=== PATIENT | female | born 1990 ===

== ENCOUNTER 2018-11-10 07:26 | Inpatient (IN) | payer BC ==
[2018-11-01 13:00] VITALS: BMI 32.1
[2018-11-10] MEDS ORDERED: ceFOXitin IV 1 gm/100 ml in NS 2 GM/200 ML BAG ONE (08:25)
[2018-11-10] MEDS ORDERED: Vasopressin 20 Units/ml Inj ONE (08:25)
[2018-11-10] MEDS ORDERED: Methylene Blue 10 mg/mL(10ml) IV ONE (08:25)
[2018-11-10] MEDS ORDERED: Propofol 10 mg/ml Inj (20 ML) ONE (09:04)
[2018-11-10] MEDS ORDERED: Midazolam 2 MG/2 ML VIAL ONE (09:04)
[2018-11-10] MEDS ORDERED: Atropine Sulfate 0.4 mg/ml (0.8mg/2ml) Syringe IV ONE ×2 (10:37→10:53)
[2018-11-10] MEDS ORDERED: Neostigmine 1:1000 (1 mg/ml) Inj ONE (10:37)
[2018-11-10] MEDS ORDERED: Bacitracin Ointment 30 GM TUBE ONE (10:54)
[2018-11-10] MEDS ORDERED: Ropivacaine 0.5% PF (20 ml) inj INJ ONE (10:59)
[2018-11-10] MEDS ORDERED: Bupivacaine 0.25% 20 ML INJ IJ ONE (10:59)
[2018-11-10] MEDS ORDERED: Lactated Ringer's 1,000 ML IV SCH ×2 (11:15→12:49)
--- NOTE | 2018-11-10 11:25 | PCM.SURG1 ---
Surgeon's Initial Post Op Note - Surgeon's Notes Surgeon: Dr. Rodas [employer]: Dr. Aviles Type of Anesthesia: General Endo Anesthesia Administered By: Dr. Casanova Pre-Operative Diagnosis: 28 yo with Chronic pelvic pain , menorrhagia , irregular menstrual cycle and Fibroid uterus Operative Findings: AV uterus with large fibroid 8 cm Post-Operative Diagnosis: Same as above Operation Performed: Exp Laparotomy , Myomectomy Specimen/Specimens Removed: Fibroid Estimated Blood Loss: EBL {In ML}: 100 Blood Products Given: N/A Drains Used: No Drains Post-Op Condition: Good Date of Surgery/Procedure: 11/10/18 Time of Surgery/Procedure: 11:22
[2018-11-10] MEDS: HYDROmorphone 0.5 mg/0.5 ml ISec IVP PRN ×5 (11:30→12:17)
[2018-11-10] MEDS ORDERED: cefOXitin IV 2 gm in Dextrose 2 GM/50 ML BAG IVPB SCH (12:00)
[2018-11-10] MEDS: Oxycodone/Acetaminophen 5/325 mg Tab PO PRN (14:31)
[2018-11-10] MEDS: cefOXitin IV 2 gm in Dextrose 2 GM/50 ML BAG IVPB SCH ×2 (14:38→21:37)
--- NOTE | 2018-11-10 14:49 | PCM.ANESB5 ---
Transverse Abdominis Block - Transverse Abdominis Plane Date of Procedure: 11/10/18 Anesthesiologist: Chano Pre-Procedure Diagnosis: s/p open myomectomy Post-Procedure Diagnosis: same Procedure Performed: Transverse Abdominis Plane Nerve Block Left, Transverse Abdominis Plane Nerve Block Right - Procedure Transverse Abdominis Plane Nerve Block: The procedure was explained to the patient that it is for post-operative pain management and would be performed after surgery. Consent was obtained prior to surgery after a thorough discussion with the patient regarding the benefits and possible complications of transverse abdominis plane block. After the surgery had concluded and before the patient emerged from general anesthesia, time-out was held with the circulating nurse to re-confirm the appropriate block. With the patient in supine position, the ultrasound probe was placed transverse to the abdominal wall at the mid-axillary line above the iliac crest of the appropriate side. The skin, subcutaneous tissue, fat, external oblique muscle, internal oblique muscle, and the transverse abdominis muscle were identified. The general area of the block site was then prepped with chloraprep. At this point, a # 21-gauge Stimuplex 4-inch needle was inserted posterior to and in plane with the ultrasound probe and directed anteriorly. Needle was advanced under direct ultrasound visualization until it reached the plane between the internal oblique and transverse abdominis muscles. After appropriate placement, 2mL of local anesthetic solution was injected. When the transverse abdominis plane was observed expanding in an ellipsoid way, the rest of the solution was slowly injected. A total of 20mL of 0.25% Bupivacaine was used for this block. The needle was then removed and sterile dressing was applied. Similarly, the same procedure was performed on the other side using the same medications. The patient had stable vital signs throughout and had no untoward complications after emergence from general anesthesia in the recovery room.
[2018-11-10] MEDS ORDERED: HYDROmorphone 0.2 mg/ml PCA 6 MG/30 ML SOL IV ONE (16:14)
--- NOTE | 2018-11-10 22:22 | OP ---
PROCEDURE DATE: 11/10/2018 PREOPERATIVE DIAGNOSIS: A 28-year-old female with a large fibroid uterus, anemia, chronic pelvic pain, irregular menstrual periods, and failure of medical therapy POSTOPERATIVE DIAGNOSIS: A 28-year-old female with a large fibroid uterus, anemia, chronic pelvic pain, irregular menstrual periods, and failure of medical therapy PROCEDURE PERFORMED: Laparotomy and myomectomy. TYPE OF ANESTHESIA: General. ANESTHESIA ADMINISTERED BY: Dr. Casanova. ESTIMATED BLOOD LOSS: Less than 100 mL. URINE OUTPUT: 100 mL. Clear urine at the end of the procedure. FLUIDS: A liter during the procedure. SPECIMEN: One large uterine fibroid. DRAIN: Yeung catheter to gravity. COMPLICATIONS: None. FINDINGS: Consent was reviewed with the patient. The patient was informed of the risk factors. The risk factors included infection, bleeding, damage to surrounding organs or tissue, complications from anesthesia and possible . She was also informed that in the event she can develop recurrence of chronic pelvic pain due to adhesions as well as informed that the leiomyoma can re-grow. All questions were answered. She understood all the questions. An informed consent was obtained. Risk factors were explained but not limited to. On bimanual examination, the patient had a large uterus of approximately 15 weeks' gestation. It was freely mobile, anteverted with no adnexal masses. Surgically, the patient had a large fibroid with a large anterior leiomyoma, it was approximately 8 cm. Both ovaries and tubes appear within normal limits. DESCRIPTION OF PROCEDURE: The patient was taken to the operating room where she was prepped and draped in normal sterile fashion in a dorsal supine position. After the anesthesia was found to be adequate, a Pfannenstiel incision was made with the first knife. This was carried to the underlying layers of the fascia with the second knife. The fascia was then excised in the midline and the fascial incision was then extended laterally in both directions with the Zapata scissors. The superior aspect of the fascial incision was then grasped with the Cyndie clamps, tented up and dissected off the underlying layers of the rectus muscles bluntly. It was then dissected in the midline with the Zapata scissors and the inferior aspect of the incision was addressed in a similar fashion. The rectus muscle was then in the midline bluntly. The peritoneum was identified with hemostatic clamps, tented up and entered sharply with the Metzenbaum scissors. The peritoneal incision was extended superiorly and inferiorly with Metzenbaum scissors and extended bluntly. Next, the uterus was grasped, removed from the abdomen. It was noted that she had a very large anterior leiomyoma. It was then injected with vasopressin 20 units mixed with 100 mL of normal saline along the serosal surface and careful to aspirate to avoid any blood vessels. Next, the point tip was used with the cautery to cut a linear incision along the top of the fibroid until the fibroids were then seen. The edges of the myometrium was then grasped with Allis clamps, tented up and hemostasis was used to bluntly dissect around the fibroids, followed by blunt dissection with the finger. The fibroid was then easily and bluntly dissected out. It was then grasped with a towel clamp for traction. Once the blunt dissection of the large fibroid was complete, it was handed off to the scrub nurse. The large fibroid, once it was handed off, that was going to be sent to pathology. So, the uterine incision was then closed first with 0 chromic in an interrupted figure-of eight fashion, three-layers closure. It was noted that we entered the cavity. From this particular point, we are going to recommend a for her future pregnancies. It was closed with three layers. Excellent hemostasis was noted and then with 0 Vicryl in a running baseball stitch. The uterus was seen to be completely hemostatic after the closure. The uterus was then carefully returned to the abdomen and being careful not to disrupt the FloSeal. Seprafilm was also applied. The rectus muscle was then reapproximated with a single interrupted suture and the peritoneum was reapproximated with 2-0 chromic. The fascia was then closed with 0 Vicryl in a running fashion and the adipose part was closed with 2-0 plain and the skin was closed with 4-0 Monocryl. Steri-Strips were applied. After the patient was cleaned, she was then taken to the recovery room in stable condition. Instrument and lap counts were correct prior to leaving the room. She was then taken to recovery in stable condition. Shayy Rodas MD [facility] # [id number]
[2018-11-11] MEDS: cefOXitin IV 2 gm in Dextrose 2 GM/50 ML BAG IVPB SCH (06:25)
[2018-11-11] MEDS: Oxycodone/Acetaminophen 5/325 mg Tab PO PRN (06:58)
[2018-11-11 08:40] LABS: HEMOGLOBIN 9.9 g/dL (11.0-16.0); MEAN CELL VOLUME 79.6 fL (81.0-99.0); MEAN CORPUSCULAR HEMOGLOBIN 25.1 pg (27.0-31.0); MEAN CORPUSCULAR HGB CONC 31.5 g/dL (33.0-37.0); MEAN PLATELET VOLUME 9.4 fL (7.2-11.7); RBC 3.96 Mil/uL (3.80-5.20); RED CELL DISTRIBUTION WIDTH 30.4 % (11.5-14.5); WHITE BLOOD COUNT 18.7 K/uL (4.8-10.8)
--- NOTE | 2018-11-11 09:10 | CP.PCM.PN ---
<Linda Guevara - Last Filed: 11/11/18 09:06> Subjective - Date & Time of Evaluation Date of Evaluation: 11/11/18 Time of Evaluation: 09:06 - Subjective Subjective: OBGYN Progress Note Patient seen and examined per Dr. Rodas's request. Patient currently s/p laparotomy and myomectomy POD1. She was examined and bedside this morning. Patient endorses a lot of pain and was sitting uncomfortably on her chair, despite taking 1 tablet of percocet at 7am. Patient has a regular diet ordered but has not eaten since she does not feel hungry. Patient has been consistently tachycardic with range 99-110 during her time in the hospital however denies any cardiac history. Rhythm strip in chart shows sinus tachycardia. Patient not complaining of chest pain and palpitations. Objective - Vital Signs/Intake and Output Vital Signs (last 24 hours): Temp Pulse Resp BP Pulse Ox 99.3 F 107 H 18 125/80 97 11/11/18 08:13 11/11/18 08:13 11/11/18 08:13 11/11/18 08:13 11/11/18 08:13 Intake and Output: 11/11/18 11/11/18 06:59 18:59 Intake Total 250 Output Total 1300 Balance -1050 - Medications Medications: Current Medications Ascorbic Acid (Vitamin C 500 Mg Tab) 500 mg PO DAILY [facility] Docusate Sodium (Colace) 100 mg PO BID [facility] Last Admin: 11/10/18 18:02 Dose: Not Given Ferrous Sulfate (Feosol) 325 mg PO TID [facility] Last Admin: 11/10/18 18:03 Dose: Not Given Hydromorphone/Sodium Chloride (Dilaudid Apricot Packer) 6 mg IV Q4H PRN; Protocol PRN Reason: Pain, moderate (4-7) Last Admin: 11/10/18 16:24 Dose: 6 mg Lactated Ringer's (Lactated Ringer's) 1,000 mls @ 125 mls/hr IV .Q8H [facility] Last Admin: 11/10/18 21:38 Dose: 125 mls/hr Ibuprofen (Motrin Tab) 600 mg PO TID [facility] Last Admin: 11/11/18 09:05 Dose: 600 mg Oxycodone/Acetaminophen (Percocet 5/325 Mg Tab) 1 tab PO Q6 PRN PRN Reason: Pain, severe (8-10) Stop: 11/13/18 11:33 Last Admin: 11/11/18 06:58 Dose: 1 tab - Labs Labs: 11/11/18 08:20 - Constitutional Appears: In Acute Distress (Patient hesitates to speak and is sitting out of bed in chair uncomfortably) - Head Exam Head Exam: ATRAUMATIC, NORMAL INSPECTION - Neck Exam Neck Exam: Normal Inspection - Respiratory Exam Respiratory Exam: Clear to Ausculation Bilateral, NORMAL BREATHING PATTERN - Cardiovascular Exam Cardiovascular Exam: Tachycardia - GI/Abdominal Exam GI & Abdominal Exam: Soft, Normal Bowel Sounds Additional comments: surgical bandages intact, patient with abdominal binder - Neurological Exam Neurological Exam: Alert, Awake - Psychiatric Exam Psychiatric exam: Agitated - Skin Skin Exam: Dry, Normal Color, Warm Assessment and Plan - Assessment and Plan (Free Text) Assessment: 28 year old female with PMHx of fibroid uterus, irregular menses, and anemia is s/p laparotomy and myomectomy POD1. s/p laparotomy and myomectomy POD1 -with uncontrolled pain this morning -Ibuprofen and percocet ordered as PRN, s/p 1 tab percocet 7am -will give toradol (30 IV and 30 IM) now due to patient's uncontrolled pain -encourage OOB to chair and ambulation -regular diet anemia -continue with iron TID and vitamin C -continue with colace BID for bowel regimen tachycardia -sinus tachycardia per rhythm strip in chart, range 99-110 this hospitalization -might be secondary to pain, dehydration, and/or her history of anemia (Hg at 9.9 today) -can consider 1 bolus of IVF if tachycardia does not resolve with improved pain control -will continue to monitor vital signs case discussed with Dr. Chad Guevara PGY1 <Amelia Bonilla - Last Filed: 11/11/18 15:02> Objective - Vital Signs/Intake and Output Vital Signs (last 24 hours): Temp Pulse Resp BP Pulse Ox 99.3 F 107 H 18 125/80 97 11/11/18 08:13 11/11/18 08:13 11/11/18 08:13 11/11/18 08:13 11/11/18 08:13 Intake and Output: 11/11/18 11/11/18 06:59 18:59 Intake Total 250 Output Total 1300 Balance -1050 - Medications Medications: Current Medications Ascorbic Acid (Vitamin C 500 Mg Tab) 500 mg PO DAILY [facility] Last Admin: 11/11/18 09:11 Dose: 500 mg Docusate Sodium (Colace) 100 mg PO BID [facility] Last Admin: 11/11/18 09:06 Dose: 100 mg Ferrous Sulfate (Feosol) 325 mg PO TID [facility] Last Admin: 11/11/18 14:46 Dose: 325 mg Hydromorphone/Sodium Chloride (Dilaudid Apricot Packer) 6 mg IV Q4H PRN; Protocol PRN Reason: Pain, moderate (4-7) Last Admin: 11/10/18 16:24 Dose: 6 mg Lactated Ringer's (Lactated Ringer's) 1,000 mls @ 125 mls/hr IV .Q8H [facility] Last Admin: 11/10/18 21:38 Dose: 125 mls/hr Ibuprofen (Motrin Tab) 600 mg PO Q6 [facility] Last Admin: 11/11/18 12:29 Dose: Not Given Oxycodone/Acetaminophen (Percocet 5/325 Mg Tab) 2 tab PO Q6H [facility] Stop: 11/14/18 09:31 Last Admin: 11/11/18 14:51 Dose: Not Given - Labs Labs: 11/11/18 08:20 Assessment and Plan - Assessment and Plan (Free Text) Plan: Pt seen and examined with Dr. Guevara and agree with her assessment, findings and POC
[2018-11-11] MEDS ORDERED: Oxycodone/Acetaminophen 5/325 mg Tab PO SCH (09:30)
[2018-11-11] MEDS: Oxycodone/Acetaminophen 5/325 mg Tab PO SCH ×3 (14:50→21:03)
[2018-11-11] MEDS: Simethicone 80 mg Chewtab PO SCH (21:04)
[2018-11-12] MEDS: Oxycodone/Acetaminophen 5/325 mg Tab PO SCH ×2 (03:06→09:46)
[2018-11-12 07:56] VITALS: RESP 18
[2018-11-12] MEDS: Simethicone 80 mg Chewtab PO SCH ×3 (09:45→17:19)
--- NOTE | 2018-11-12 12:38 | CP.PCM.PN ---
Subjective - Date & Time of Evaluation Date of Evaluation: 11/12/18 Time of Evaluation: 12:36 - Subjective Subjective: OBGYN Progress Note Patient seen and examined per Dr. Rodas's request. Patient seen and examined at bedside this morning. Patient states her pain is decreasing. She has been taking scheduled motrin and 2 tabs of percocet. She thinks the percocet is making her dizzy. She has been passing gas and tolerating a regular diet. Patient wants to go home tonight. Objective - Vital Signs/Intake and Output Vital Signs (last 24 hours): Temp Pulse Resp BP Pulse Ox 97.8 F 97 H 18 115/68 97 11/12/18 07:55 11/12/18 07:55 11/12/18 07:55 11/12/18 07:55 11/12/18 07:55 Intake and Output: 11/12/18 11/12/18 06:59 18:59 Intake Total 500 Balance 500 - Medications Medications: Current Medications Ascorbic Acid (Vitamin C 500 Mg Tab) 500 mg PO DAILY [facility] Last Admin: 11/12/18 09:45 Dose: 500 mg Diphenhydramine HCl (Benadryl) 50 mg PO HS [facility] Last Admin: 11/11/18 22:58 Dose: 50 mg Docusate Sodium (Colace) 100 mg PO BID [facility] Last Admin: 11/12/18 09:44 Dose: 100 mg Ferrous Sulfate (Feosol) 325 mg PO TID [facility] Last Admin: 11/12/18 09:45 Dose: 325 mg Hydromorphone/Sodium Chloride (Dilaudid Outsole Cementer Machine) 6 mg IV Q4H PRN; Protocol PRN Reason: Pain, moderate (4-7) Last Admin: 11/10/18 16:24 Dose: 6 mg Lactated Ringer's (Lactated Ringer's) 1,000 mls @ 125 mls/hr IV .Q8H [facility] Last Admin: 11/10/18 21:38 Dose: 125 mls/hr Ibuprofen (Motrin Tab) 600 mg PO Q6 [facility] Last Admin: 11/12/18 12:28 Dose: 600 mg Oxycodone/Acetaminophen (Percocet 5/325 Mg Tab) 2 tab PO Q6H [facility] Stop: 11/14/18 09:31 Last Admin: 11/12/18 09:46 Dose: 2 tab Simethicone (Mylicon Chew Tab) 80 mg PO QID [facility] Last Admin: 11/12/18 09:45 Dose: 80 mg - Labs Labs: 11/11/18 08:20 - Constitutional Appears: Well (More relaxed appearing compared to yesterday, able to converse in bed comfortably), Non-toxic - Head Exam Head Exam: ATRAUMATIC, NORMAL INSPECTION - Neck Exam Neck Exam: Normal Inspection - Respiratory Exam Respiratory Exam: Clear to Ausculation Bilateral, NORMAL BREATHING PATTERN - Cardiovascular Exam Cardiovascular Exam: REGULAR RHYTHM - GI/Abdominal Exam GI & Abdominal Exam: Soft, Normal Bowel Sounds Additional comments: Lower abdominal incision and lateral incisions (right and left) - Neurological Exam Neurological Exam: Alert, Awake, Oriented x3 - Psychiatric Exam Psychiatric exam: Normal Affect, Normal Mood - Skin Skin Exam: Dry, Intact, Normal Color, Warm Assessment and Plan - Assessment and Plan (Free Text) Assessment: 28 year old female s/p laparotomy and myomectomy POD2. -continue with bowel regimen colace, vitamin C, and iron -continue with motrin and percocet PRN for pain control. Give one dose motrin now and then 1 tab of percocet around 5pm (discontinue 2 tabs), reassess pain before possible discharge tonight -Medication rx in chart from Dr. Rodas case discussed with Dr. Chad Guevara PGY1
--- NOTE | 2018-11-12 12:55 | CP.PCM.DIS ---
<Linda Guevara - Last Filed: 11/12/18 17:58> Provider - Provider Date of Admission: 11/10/18 07:26 Attending physician: Shayy Rodas MD Time Spent in preparation of Discharge (in minutes): 45 Hospital Course - Lab Results Lab Results: Most Recent Lab Values WBC 18.7 K/uL (4.8-10.8) H 11/11/18 08:20 RBC 3.96 Mil/uL (3.80-5.20) 11/11/18 08:20 Hgb 9.9 g/dL (11.0-16.0) L 11/11/18 08:20 Hct 31.5 % (34.0-47.0) L 11/11/18 08:20 MCV 79.6 fL (81.0-99.0) L 11/11/18 08:20 MCH 25.1 pg (27.0-31.0) L 11/11/18 08:20 MCHC 31.5 g/dL (33.0-37.0) L 11/11/18 08:20 RDW 30.4 % (11.5-14.5) H 11/11/18 08:20 Plt Count 363 K/uL (130-400) 11/11/18 08:20 MPV 9.4 fL (7.2-11.7) 11/11/18 08:20 Blood Type O POSITIVE 11/10/18 09:06 Antibody Screen Negative 11/10/18 09:06 - Hospital Course Hospital Course: This is a 28 year old female under the care of Dr. Rodas [facility], with PMHx of uterine fibroids and menorrhagia who has failed outpatient medical therapy. On 11/10, patient had a laparotomy and myomectomy. Patient was seen and examined by the OB hospitalist on POD1 and POD2 upon request from Dr. Rodas. Her post-op pain has been decreasing, she has been able to tolerate a regular diet, and she has been passing gas. Medication rx in chart from Dr. Rodas. Discharge Exam - Head Exam Head Exam: ATRAUMATIC, NORMAL INSPECTION - Eye Exam Eye Exam: Normal appearance - Respiratory Exam Respiratory Exam: Clear to PA & Lateral, NORMAL BREATHING PATTERN, UNREMARKABLE - Cardiovascular Exam Cardiovascular Exam: REGULAR RHYTHM - GI/Abdominal Exam GI & Abdominal Exam: Normal Bowel Sounds, Unremarkable Additional comments: sutures clean, dry and intact. Incisions in lower abdomen, left and right side - Neurological Exam Neurological exam: Alert, Oriented x3 - Psychiatric Exam Psychiatric exam: Normal Affect, Normal Mood - Skin Skin Exam: Dry, Intact, Normal Color, Warm Discharge Plan - Follow Up Plan Condition: GOOD Disposition: HOME/ ROUTINE Instructions: How to Prevent Surgical Site Infections, Myomectomy (DC) Additional Instructions: In summary: Light activity, no heavy lifting, drink plenty of fluids. Avoid heavy lifting (greater than 10 lbs) for 4 weeks. Take all prescribed medicine exactly as directed. Continue deep breathing, ambulating, and going out of bed to chair. Keep the incisions clean and dry. Avoid constipation, which causes straining to pass stool. Eat fruits, vegetables, and whole-grain foods. If you are having a significantly increased amount of pain or bleeding, please call Dr. Rodas and go to the nearest emergency room. Thank you and be well. follow up with Dr Goldberg in one week Referrals: Shayy Rodas MD [Staff Provider] - <Amelia Bonilla - Last Filed: 11/12/18 18:45> Provider - Provider Date of Admission: 11/10/18 07:26 Attending physician: Shayy Rodas MD Hospital Course - Lab Results Lab Results: Most Recent Lab Values WBC 18.7 K/uL (4.8-10.8) H 11/11/18 08:20 RBC 3.96 Mil/uL (3.80-5.20) 11/11/18 08:20 Hgb 9.9 g/dL (11.0-16.0) L 11/11/18 08:20 Hct 31.5 % (34.0-47.0) L 11/11/18 08:20 MCV 79.6 fL (81.0-99.0) L 11/11/18 08:20 MCH 25.1 pg (27.0-31.0) L 11/11/18 08:20 MCHC 31.5 g/dL (33.0-37.0) L 11/11/18 08:20 RDW 30.4 % (11.5-14.5) H 11/11/18 08:20 Plt Count 363 K/uL (130-400) 11/11/18 08:20 MPV 9.4 fL (7.2-11.7) 11/11/18 08:20 Blood Type O POSITIVE 11/10/18 09:06 Antibody Screen Negative 11/10/18 09:06 - Hospital Course Hospital Course: Pt discharged home in stable and Satisfactory condition with instructions and Rx for Percocet, Motrin, Colace and Keflex as ordered by Dr. Rodas. Pt seen and examined with Dr. Guevara and per Dr. Rodas request. I agree with all her findings and POC - Date & Time of H&P Date of H&P: 11/12/18 Time of H&P: 18:44 Discharge Plan - Follow Up Plan Patient education suggested?: Yes
[2018-11-12] MEDS ORDERED: Oxycodone/Acetaminophen 5/325 mg Tab PO PRN (15:18)
[2018-11-12 18:00] VITALS: BP 122/70; PULSE 68; TEMP 98; O2SAT 99
== END 2018-11-12 18:00 | disposition home or self-care (01) | DRG 743 ==
LOC: C.9S 07:26 → EDSTATUS 09:00 → C.4M 13:08
PROVIDERS: ADMIT Obstetrics & Gynecology; ATTEND Obstetrics & Gynecology
PROC: 0UB90ZZ Excision of Uterus, Open Approach (ICD-10-PCS; principal; 2018-11-10 09:00)
DX: D25.9 Leiomyoma of uterus, unspecified (principal); N92.0 Excessive and frequent menstruation with regular cycle; G89.29 Other chronic pain; R10.2 Pelvic and perineal pain; D64.9 Anemia, unspecified